=== PATIENT | female | born 1995 | race Caucasian/White ===

== ENCOUNTER 2018-04-11 | Emergency (ER) | payer OTHER ==
--- NOTE | 2018-04-11 15:20 | ER Document Report ---
ED Medical Screen (RME) - General Chief Complaint: Abscess Stated Complaint: BUMP ON TAILBONE Time Seen by Provider: 04/11/18 15:17 Mode of Arrival: Ambulatory Information source: Patient Notes: 22-year-old female with no reported past medical history presents from urgent care with complaint of a "lump on my tailbone". Patient states she noticed this a few days prior to arrival. She states it has increased in size and has become more painful. She denies any prior similar symptoms, history of MRSA. Denies any discharge from the site. She denies any fever, chills, nausea, vomiting. I have greeted and performed a rapid medical assessment of the patient. A comprehensive evaluation and assessment will be performed by another ED provider. Medical decision making, lab review/x-rays if performed will be reviewed by the ED provider assuming care of the patient. PHYSICAL EXAMINATION: GENERAL: Well-appearing, well-nourished and in no acute distress. HEAD: Atraumatic, normocephalic. EYES: Pupils equal round extraocular movements intact, conjunctiva are normal. ENT: Nares patent NECK: Normal range of motion LUNGS: No respiratory distress Musculoskeletal: Normal range of motion NEUROLOGICAL: Normal speech, normal gait. PSYCH: Normal mood, normal affect. SKIN: Warm, Dry, normal turgor, no rashes or lesions noted. TRAVEL OUTSIDE OF THE [place] IN LAST 30 DAYS: No - HPI Onset: Other Onset/Duration: Gradual Quality of pain: Throbbing Severity: Mild Associated Symptoms: None Exacerbated by: Sitting, Movement Relieved by: Denies Similar symptoms previously: No Recently seen / treated by doctor: Yes - Sent over by urgent care - Related Data Smoking: Non-smoker Frequency of alcohol use: Occasional Drug Abuse: None Allergies/Adverse Reactions: sulfamethoxazole [From Bactrim] Allergy (Verified 04/11/18 14:37) trimethoprim [From Bactrim] Allergy (Verified 04/11/18 14:37) Past Medical History - Social History Chew tobacco use (# tins/day): No Frequency of alcohol use: Occasional Drug Abuse: None Renal/ Medical History: Denies: Hx Peritoneal Dialysis Physical Exam - Vital signs Vitals: Temp Pulse Resp BP Pulse Ox 98.6 F 88 16 106/62 100 04/11/18 14:46 04/11/18 14:46 04/11/18 14:46 04/11/18 14:46 04/11/18 14:46 Course - Vital Signs Vital signs: Temp Pulse Resp BP Pulse Ox 98.6 F 88 16 106/62 100 04/11/18 14:46 04/11/18 14:46 04/11/18 14:46 04/11/18 14:46 04/11/18 14:46
--- NOTE | 2018-04-11 15:59 | ER Document Report ---
ED Skin Rash/Insect Bite/Abscs - General Chief Complaint: Abscess Stated Complaint: BUMP ON TAILBONE Time Seen by Provider: 04/11/18 15:17 Mode of Arrival: Ambulatory Information source: Patient TRAVEL OUTSIDE OF THE [place] IN LAST 30 DAYS: No - HPI Patient complains to provider of: Skin rash/lesion Notes: Patient is here with complaints of sore area to her tailbone area for the last 5 days. States this started small and is progressively gotten larger. She was seen in urgent care and was told to come the emergency department. No fever. No nausea, vomiting, diarrhea. No numbness, tingling, weakness. No injury. No fever. No history of pilonidal abscess or cyst. She denies any abdominal pain. No dysuria or hematuria. No other complaints at this time. Pain is worse with touching the area or sitting, better when she is standing. - Related Data Allergies/Adverse Reactions: sulfamethoxazole [From Bactrim] Allergy (Verified 04/11/18 14:37) trimethoprim [From Bactrim] Allergy (Verified 04/11/18 14:37) Past Medical History - General Information source: Patient - Social History Smoking Status: Never Smoker Chew tobacco use (# tins/day): No Frequency of alcohol use: Occasional Drug Abuse: None Family History: Reviewed & Not Pertinent Patient has suicidal ideation: No Patient has homicidal ideation: No Renal/ Medical History: Denies: Hx Peritoneal Dialysis Review of Systems - Review of Systems -: Yes All other systems reviewed and negative Physical Exam - Vital signs Vitals: Temp Pulse Resp BP Pulse Ox 98.6 F 88 16 106/62 100 04/11/18 14:46 04/11/18 14:46 04/11/18 14:46 04/11/18 14:46 04/11/18 14:46 - Notes Notes: GENERAL: alert, cooperative, nontoxic, no distress. HEAD: normocephalic, atraumatic EYES: conjunctiva pink without discharge, no external redness or swelling. EARS: no external swelling, no external redness NOSE: atraumatic, no external swelling MOUTH/THROAT: mucous membranes moist and pink NECK: soft, supple, full range of motion, no meningismus. CHEST: no distress, lungs clear and equal throughout. No wheezing, rales, rhonchi. CARDIAC: regular rate and rhythm, no murmur, normal capillary refill, normal pulses. BACK: full range of motion, no CVA tenderness. EXTREMITIES: full range of motion of all extremities. No redness, no swelling. NEURO: alert and oriented 3, no focal deficits, full range of motion of all extremities. PYSCH: appropriate mood, affect. Patient is cooperative. SKIN: pink, warm, dry, no rash. Slight redness and tenderness to the pilonidal area. No rectal abscess. No significant surrounding cellulitis. No drainage. Course - Re-evaluation Re-evalutation: 04/11/18 16:25 Patient is nontoxic appearing with stable vitals. Patient is here with complaints of pilonidal abscess. She is a small pilonidal abscess noted. No fever. I was able to drain a moderate amount of purulent material from this abscess. Patient be placed on antibiotics as well as pain medication. She was instructed to apply warm compresses sore area. Follow-up if she has not improving in the next 2 days, sooner for worsening pain, fever, numbness, tingling, weakness, redness, any further concerns. The patient's emergency department workup and current diagnosis were explained to the patient and or family. Follow-up instructions were provided. Medications if prescribed were discussed. Instructions for when to return to the emergency department including specific worrisome symptoms were discussed with the patient and/or family. - Vital Signs Vital signs: Temp Pulse Resp BP Pulse Ox 98.6 F 88 16 106/62 100 04/11/18 14:46 04/11/18 14:46 04/11/18 14:46 04/11/18 14:46 04/11/18 14:46 Procedures - Incision and Drainage pilonidal Type: Simple Anesthetic type: 1% Lidocaine Blade size: 11 I&D procedure: Betadine prep applied, Sterile dressing applied, Other - Probe with hemostats Incision Method: Incision made by scalpel Amount/type of drainage: Moderate amount of purulent/bloody drainage Discharge - Discharge Clinical Impression: Pilonidal abscess Condition: Stable Disposition: HOME, SELF-CARE Instructions: Abscess ([facility]), Post Incision and Drainage, Oral Narcotic Medication ([facility]) Additional Instructions: Take medication as prescribed. Apply warm compresses to sore area. Follow-up if not improving in the next 2 days, sooner for worsening pain, fever, redness, persistent vomiting, or for any further concerns. The medication you were prescribed today may cause drowsiness. Do not drive or operate heavy machinery while taking this medication. Prescriptions: Clindamycin HCl 300 mg PO QID #40 capsule Hydrocodone/Acetaminophen [Brohard 5-325 mg Tablet] 2 tab PO Q6H PRN #10 tab PRN Reason: Forms: Smoking Cessation Education Referrals: [facility] [Provider Group] - Follow up as needed
== END 2018-04-11 16:45 | disposition home or self-care (01) ==
PROC: 0H98XZZ Drainage of Buttock Skin, External Approach (ICD-10-PCS; principal; 2018-04-11)
CPT/HCPCS: 99283

== ENCOUNTER 2018-05-07 21:48 | Emergency (ER) | payer OTHER ==
[2018-05-07] MEDS ORDERED: METOCLOPRAMIDE HCL INJ/PF 10 MG/2 ML SDV IM ONE (23:44)
[2018-05-07] MEDS ORDERED: DIPHENHYDRAMINE HCL 50 MG/ML VIAL IM ONE (23:44)
--- NOTE | 2018-05-07 23:47 | ER Document Report ---
ED General - General Chief Complaint: Headache Stated Complaint: HEADACHES Time Seen by Provider: 05/07/18 23:13 Notes: Patient is a 22-year-old female presents with complaint of headache. She states for about 2 months she has had these recurring headaches. They are always in the same location. They always occur on the right side behind her right eye and then go around to the back of her head. She says when she gets the headaches her right eye will sometimes close. She says that they come in waves. She says that he to come on quickly but then they gradually worsened over time. No fevers. No recent infections. No trauma to her head. She has not had a workup for headaches in the past. She says she currently still has mild version of the headache. She said a few times she feels as if she is lost vision when the headache was very severe. She says when this happens it lasts approximately 30 minutes. She has no other complaints at this time. Focal weakness or numbness. No difficulty breathing. TRAVEL OUTSIDE OF THE [place] IN LAST 30 DAYS: No - Related Data Allergies/Adverse Reactions: sulfamethoxazole [From Bactrim] Allergy (Verified 04/11/18 14:37) trimethoprim [From Bactrim] Allergy (Verified 04/11/18 14:37) Past Medical History - Social History Smoking Status: Never Smoker Frequency of alcohol use: None Drug Abuse: None Family History: Reviewed & Not Pertinent Patient has suicidal ideation: No Patient has homicidal ideation: No Renal/ Medical History: Denies: Hx Peritoneal Dialysis Review of Systems - Review of Systems Notes: My Normal Review Basic REVIEW OF SYSTEMS: CONSTITUTIONAL : Denies fever, chills, or sweats. Denies recent illness. EENT: Loss of vision a few times with severe headache. CARDIOVASCULAR: Denies chest pain. RESPIRATORY: Denies cough, cold, or chest congestion. Denies shortness of breath, difficulty breathing, or wheezing. GASTROINTESTINAL: Denies abdominal pain. Denies nausea, vomiting, or diarrhea. Denies constipation. Last BM: MUSCULOSKELETAL: Denies neck or back pain or joint pain or swelling. SKIN: Denies rash or skin lesions. NEUROLOGICAL: Denies altered mental status or loss of consciousness. Has a headache. Denies weakness or paralysis or loss of use of either side. Denies problems with gait or speech. Denies sensory or motor loss. ALL OTHER SYSTEMS REVIEWED AND NEGATIVE. Physical Exam - Vital signs Vitals: Temp Pulse Resp BP Pulse Ox 98.6 F 72 18 116/72 99 05/07/18 21:53 05/07/18 21:53 05/07/18 21:53 05/07/18 21:53 05/07/18 21:53 - Notes Notes: General Appearance: Well nourished, alert, cooperative, no acute distress, no obvious discomfort. Vitals: reviewed, See vital signs table. Head: no swelling or tenderness to the head Eyes: PERRL, EOMI, Conjuctiva clear Mouth: No decreasd moisture Lungs: No wheezing, No rales, No rhonci, No accessory muscle use, good air exchange bilaterally. Heart: Normal rate, Regular rythm, No murmur, no rub Abdomen: Normal BS, soft, No rigidity, No abdominal tenderness, No guarding, no rebound, no abdominal masses, no organomegaly Extremities: strength 5/5 in all extremities, good pulses in all extremities, no swelling or tenderness in the extremities, no edema. Skin: warm, dry, appropriate color, no rash Neuro: speech clear, oriented x 3, normal affect, responds appropriately to questions. Cranial nerves II through XII are intact. Distal sensation intact. Patient moves all extremities without difficulty. Normal gait. Course - Re-evaluation Re-evalutation: 05/08/18 05:34 Patient looks very well. I feel she is safe to be discharged home. Her headache is much improved. CT scan was obtained patient has been having headaches now for approximately 2 months and these are new for her. CT scan does not show any evidence of large mass or tumor. Informed her that she is followed closely with a neurologist for further evaluation and workup and treatment of her headaches. I suspect she most likely has cluster headaches based on her history of recurrent headaches are one-sided behind one eye and the fact that come in waves. I did explain this to the patient she is understanding of this. I do not feel she needs a lumbar puncture as her headache or not maximal in onset and a gradually worsened over time. Patient to return to ER if she has worsening intractable headaches or if she feels unwell. Patient agrees with plan will be discharged home. Dictation of this chart was performed using voice recognition software; therefore, there may be some unintended grammatical errors. - Vital Signs Vital signs: Temp Pulse Resp BP Pulse Ox 97.7 F 86 20 103/71 99 05/08/18 00:42 05/08/18 00:42 05/08/18 00:42 05/08/18 00:42 05/08/18 00:42 Discharge - Discharge Clinical Impression: Headache Qualifiers: Headache type: unspecified Headache chronicity pattern: episodic headache Intractability: not intractable Qualified Code(s): R51 - Headache Condition: Good Disposition: HOME, SELF-CARE Additional Instructions: Please follow up closely with the neurologist, Dr. Cao, for further evaluation in regards to your headaches. Please return to the ER immediately if you have an intractable headache, fevers, vomiting, or feel unwell. I have prescribed you Reglan which you can take with 50mg of Benadryl when you have a headache that will not respond to Tylenol or Ibuprofen. Do not drive after taking the Reglan as it may make you sleepy. Prescriptions: Metoclopramide HCl [Reglan 10 mg Tablet] 1 tab PO ASDIR PRN #25 tablet PRN Reason: Referrals: BOBY CAO MD [NO LOCAL MD] - Follow up in 3-5 days (call in the am to make a follow up appointment.)
--- NOTE | 2018-05-08 00:20 | RADIOLOGY REPORT (SQ) ---
PROCEDURE: CT of the head without intravenous contrast HISTORY: recurring headaches Indication: Same as above Comparison: None Technique: CT of the head was done without intravenous contrast was done in the orthogonal planes. This exam was performed according to our departmental dose-optimization program, which includes automated exposure control, adjustment of the mA and/or KV according to the patient's size and/or use of iterative reconstruction technique. FINDINGS: There is no intracranial hemorrhage, midline shift mass effect or acute focal infarct. If clinical concern exists regarding an acute ischemic/vascular pathology being responsible for patient's symptomatology, an MRI of the brain is more sensitive than the current study, in ruling out such a possibility. There is good patino/white matter differentiation. The ventricular system is normal. The mastoid air cells are unremarkable . The paranasal sinuses show changes of chronic sinusitis . There is no visualization of acute fractures involving the calvarium or the skull base. IMPRESSION: There is no acute intracranial abnormality. Changes of chronic bilateral maxillary sinusitis
[2018-05-08 00:45] VITALS: BP 103/71
== END 2018-05-08 00:42 | disposition home or self-care (01) ==
LOC: ER 21:48
DX: R51 Headache (principal)
CPT/HCPCS: 99284; 96372; 70450; J1200; J2765